=== PATIENT | female | born 1960 | race Caucasian/White ===

== ENCOUNTER 2020-11-24 14:49 | Outpatient (CLI) | payer BC | END 2020-11-24 14:50 | disposition home or self-care (01) | LOC: CSHMAMMO 14:49 | PROVIDERS: ATTEND Family Medicine | DX: Z12.31 Encounter for screening mammogram for malignant neoplasm of breast (principal); Z85.41 Personal history of malignant neoplasm of cervix uteri | CPT/HCPCS: 77063; 77067 ==

== ENCOUNTER 2023-02-07 13:25 | Outpatient (CLI) | payer BC | END 2023-02-07 13:26 | disposition home or self-care (01) | LOC: CSHMAMMO 13:25 | PROVIDERS: ATTEND Family Medicine | DX: Z12.31 Encounter for screening mammogram for malignant neoplasm of breast (principal); Z85.41 Personal history of malignant neoplasm of cervix uteri | CPT/HCPCS: 77063; 77067 ==

== ENCOUNTER 2024-02-10 12:48 | Outpatient (CLI) | payer BC | END 2024-02-10 12:49 | disposition home or self-care (01) | LOC: CSHMAMMO 12:48 | PROVIDERS: ATTEND Family Medicine | DX: Z12.31 Encounter for screening mammogram for malignant neoplasm of breast (principal); Z85.41 Personal history of malignant neoplasm of cervix uteri | CPT/HCPCS: 77063; 77067 ==

== ENCOUNTER 2025-02-11 14:58 | Outpatient (CLI) | payer BC | END 2025-02-11 14:59 | disposition home or self-care (01) | LOC: CSHMAMMO 14:58 | PROVIDERS: ATTEND Family Medicine | DX: Z12.31 Encounter for screening mammogram for malignant neoplasm of breast (principal); Z85.41 Personal history of malignant neoplasm of cervix uteri | CPT/HCPCS: 77063; 77067 ==